=== PATIENT | male | born 1965 | race Caucasian/White ===

== ENCOUNTER 2018-09-12 00:56 | Inpatient (IN) | payer MEDICAID ==
[~2018-09-12] VITALS: Ht 185.4 cm; Wt 115.0 kg
[2018-09-12] MEDS ORDERED: ONDANSETRON 2MG/ML, 2ML IVPush ONE (01:30)
[2018-09-12] MEDS ORDERED: AMPICILLIN/SULBACTAM 3 GM in SODIUM CHLORIDE 0.9% 100 ML IVPB ONE (01:30)
[2018-09-12] MEDS ORDERED: VANCOMYCIN 2,000 MG in SODIUM CHLORIDE 0.9% 500 ML IV ONE (01:30)
[2018-09-12] MEDS ORDERED: MORPHINE SULFATE 4 MG/ML, 1ML IV PRN (01:30)
[2018-09-12] MEDS ORDERED: SODIUM CHLORIDE 0.9% 1,000ML IVBOLUS ONE (01:30)
[2018-09-12] MEDS ORDERED: SODIUM CHLORIDE FLUSH 10ML SYR IVF ONE (01:30)
[2018-09-12] MEDS ORDERED: VANCOMYCIN PER PHARMACY IV ONE (01:30)
[2018-09-12] MEDS ORDERED: ONDANSETRON 2MG/ML, 2ML ONE (01:44)
[2018-09-12] MEDS ORDERED: MORPHINE SULFATE 4 MG/ML, 1ML ONE (01:45)
[2018-09-12 01:47] LABS: HCT (SEDRATE) 41.7 % (39.2-51.8)
[2018-09-12 01:48] LABS: MEAN CORPUSCULAR HEMOGLOBIN 29.1 pg (27.5-34.5); MEAN CORPUSCULAR HGB CONC 34.5 g/dL (33.2-36.2); MEAN CORPUSCULAR VOLUME 84.2 fL (81-97); MEAN PLATELET VOLUME 8.9 fL (7.4-10.4); PLATELET COUNT 304 x10^3/uL (130-400); RED BLOOD COUNT 5.04 x10^6/uL (4.38-5.82); RED CELL DISTRIBUTION WIDTH 13.5 % (9.4-14.8)
[2018-09-12 02:01] LABS: ALBUMIN 3.6 g/dL (3.4-5.0); ANION GAP 10 mmol/L (5-15); CALCIUM 8.9 mg/dL (8.5-10.1); CHLORIDE 103 mmol/L (98-107); CREATININE 1.23 mg/dL (0.7-1.3)
[2018-09-12 02:22] LABS: BASOPHILS # (AUTO) 0.11 x10^3/uL (0-0.1); BASOPHILS % (AUTO) 0 % (0-1); EOSINOPHILS # (AUTO) 0.02 x10^3/uL (0-0.4); EOSINOPHILS % (AUTO) 0 % (1-7); LYMPHOCYTES % (AUTO) 6 % (22-44); MD SCAN; MONOCYTES # (AUTO) 1.99 x10^3/uL (0.2-0.8); MONOCYTES % (AUTO) 8 % (2-9); NEUTROPHILS # (AUTO) 23.05 x10^3/uL (1.8-6.8); NEUTROPHILS % (AUTO) 86 % (42-75)
[2018-09-12] MEDS ORDERED: OMNIPAQUE 350 MG/ML, 100ML BOTTLE ONE (02:37)
[2018-09-12] MEDS ORDERED: AMLO10TA6 PO (03:22)
[2018-09-12 04:16] VITALS: BP 135/87
[2018-09-12] MEDS ORDERED: KETOROLAC 30 MG/1 ML IV PRN (04:30)
[2018-09-12] MEDS ORDERED: ONDANSETRON 2MG/ML, 2ML IVPush PRN (04:30)
[2018-09-12] MEDS ORDERED: POLYETHYLENE GLYCOL 17 GM PACKET PO PRN (04:30)
[2018-09-12] MEDS ORDERED: PROMETHAZINE 25 MG/ML, 1ML IM PRN (04:30)
[2018-09-12] MEDS ORDERED: CYCLOBENZAPRINE 10 MG TABLET PO PRN (04:30)
[2018-09-12] MEDS ORDERED: ONDANSETRON ODT 4 MG PO PRN (04:30)
[2018-09-12] MEDS ORDERED: LABETALOL 5MG/ML, 20ML IVPush PRN (04:30)
[2018-09-12] MEDS ORDERED: BISACODYL 10 MG SUPP PR PRN (04:30)
[2018-09-12] MEDS ORDERED: ACETAMINOPHEN 325 MG TABLET PO PRN (04:30)
[2018-09-12] MEDS ORDERED: morphine SULFATE 10 MG/ML, 1ML IVPush PRN (04:30)
[2018-09-12] MEDS ORDERED: hydrALAzine 20 MG/ML, 1ML IVPush PRN (04:30)
[2018-09-12] MEDS ORDERED: VANCOMYCIN PER PHARMACY MC PRN (05:00)
[2018-09-12] MEDS: SODIUM CHLORIDE 0.9% 1,000 ML IV SCH ×2 (05:38→16:20)
[2018-09-12] MEDS: PIPERACILLIN/TAZO/PMX 3.375GM 50 ML IV SCH ×3 (05:38→16:21)
[2018-09-12] MEDS: LACTOBACILLUS CHEW TABLET PO SCH ×4 (06:00→21:18)
[2018-09-12 06:13] LABS: FREE T4 (FREE THYROXINE) 1.52 ng/dL (0.76-1.46); THYROID STIMULATING HORMONE 0.76 mIU/L (0.358-3.740)
[2018-09-12] MEDS ORDERED: PHARMACOKINETIC CONSULTATION MC ONE (06:30)
[2018-09-12] MEDS ORDERED: PHARMACOKINETIC MONITORING MC PRN (06:30)
[2018-09-12 07:42] VITALS: BP 129/81
[2018-09-12] MEDS: SENNA/DOCUSATE TABLET PO SCH (08:08)
[2018-09-12] MEDS: HEPARIN 5,000 UNITS/ML, 1ML SQ SCH ×2 (08:08→16:21)
[2018-09-12 12:34] LABS: HEMOGLOBIN A1C 6.4 % (4.2-6.3)
[2018-09-12 13:17] VITALS: BP 122/69
[2018-09-12] MEDS: OXYcodone/APAP 5/325MG TABLET PO PRN ×2 (16:23→21:18)
[2018-09-12 20:06] VITALS: BP 110/69
[2018-09-12] MEDS: VANCOMYCIN 2,000 MG in SODIUM CHLORIDE 0.9% 500 ML IV SCH (21:17)
[2018-09-13] MEDS: PIPERACILLIN/TAZO/PMX 3.375GM 50 ML IV SCH ×5 (00:47→23:25)
[2018-09-13] MEDS: HEPARIN 5,000 UNITS/ML, 1ML SQ SCH ×3 (00:47→17:00)
[2018-09-13 01:46] VITALS: BP 146/90
[2018-09-13 05:22] LABS: ALBUMIN 2.4 g/dL (3.4-5.0); CALCIUM 7.9 mg/dL (8.5-10.1); CHLORIDE 105 mmol/L (98-107)
[2018-09-13 05:25] LABS: MEAN CORPUSCULAR HEMOGLOBIN 29.4 pg (27.5-34.5); MEAN CORPUSCULAR HGB CONC 34.7 g/dL (33.2-36.2); MEAN CORPUSCULAR VOLUME 84.7 fL (81-97); MEAN PLATELET VOLUME 8.7 fL (7.4-10.4); PLATELET COUNT 205 x10^3/uL (130-400); RED BLOOD COUNT 4.44 x10^6/uL (4.38-5.82); RED CELL DISTRIBUTION WIDTH 13.7 % (9.4-14.8)
[2018-09-13 05:27] LABS: ALANINE AMINOTRANSFERASE 19 U/L (12-78); ALKALINE PHOSPHATASE 98 U/L (45-117); ANION GAP 8 mmol/L (5-15); CHOL/HDL RATIO 4.8; CHOLESTEROL, TOTAL 91 mg/dL (140-239); CREATININE 0.89 mg/dL (0.7-1.3); HDL CHOL % 21 % (26-37); HDL CHOLESTEROL (DIRECT) 19 mg/dL (40-60); LDL CHOLESTEROL,CALCULATED 52 mg/dL (54-169); LDL/HDL RATIO 2.7 (0.5-3.0); TOTAL PROTEIN 6.3 g/dL (6.4-8.2); TRIGLYCERIDES 101 mg/dL (50-200); VLDL CHOLESTEROL 20 mg/dL (0-25)
[2018-09-13] MEDS: SODIUM CHLORIDE 0.9% 1,000 ML IV SCH (05:46)
[2018-09-13] MEDS: LACTOBACILLUS CHEW TABLET PO SCH ×4 (05:46→22:17)
[2018-09-13] MEDS: OXYcodone/APAP 5/325MG TABLET PO PRN ×3 (05:46→22:16)
[2018-09-13 05:48] LABS: BASOPHILS # (AUTO) 0.06 x10^3/uL (0-0.1); BASOPHILS % (AUTO) 0 % (0-1); EOSINOPHILS # (AUTO) 0.16 x10^3/uL (0-0.4); EOSINOPHILS % (AUTO) 1 % (1-7); LYMPHOCYTES # (AUTO) 1.57 x10^3/uL (1-3.4); LYMPHOCYTES % (AUTO) 6 % (22-44); MD SCAN; MONOCYTES # (AUTO) 1.69 x10^3/uL (0.2-0.8); MONOCYTES % (AUTO) 6 % (2-9); NEUTROPHILS # (AUTO) 23.48 x10^3/uL (1.8-6.8); NEUTROPHILS % (AUTO) 87 % (42-75)
[2018-09-13 07:03] VITALS: BP 122/69
[2018-09-13] MEDS: SENNA/DOCUSATE TABLET PO SCH (09:22)
[2018-09-13 14:02] VITALS: BP 126/72
[2018-09-13] MEDS: KETOROLAC 30 MG/1 ML IV SCH ×2 (15:03→22:17)
[2018-09-13] MEDS: VANCOMYCIN 2,000 MG in SODIUM CHLORIDE 0.9% 500 ML IV SCH (15:03)
[2018-09-13 19:01] VITALS: BP 138/88
[2018-09-14 03:14] VITALS: BP 134/83
[2018-09-14] MEDS: HEPARIN 5,000 UNITS/ML, 1ML SQ SCH ×2 (03:15→11:40)
[2018-09-14] MEDS: KETOROLAC 30 MG/1 ML IV SCH ×2 (03:16→09:41)
[2018-09-14] MEDS: LACTOBACILLUS CHEW TABLET PO SCH ×2 (05:46→11:40)
[2018-09-14] MEDS: PIPERACILLIN/TAZO/PMX 3.375GM 50 ML IV SCH ×2 (05:46→11:40)
[2018-09-14 07:37] VITALS: BP 137/91
[2018-09-14] MEDS: VANCOMYCIN 2,000 MG in SODIUM CHLORIDE 0.9% 500 ML IV SCH (09:40)
[2018-09-14] MEDS: OXYcodone/APAP 5/325MG TABLET PO PRN (09:41)
[2018-09-14] MEDS: SENNA/DOCUSATE TABLET PO SCH (09:41)
[2018-09-14 11:51] LABS: MEAN CORPUSCULAR HEMOGLOBIN 29.1 pg (27.5-34.5); MEAN CORPUSCULAR HGB CONC 34.4 g/dL (33.2-36.2); MEAN CORPUSCULAR VOLUME 84.6 fL (81-97); MEAN PLATELET VOLUME 9.2 fL (7.4-10.4); PLATELET COUNT 231 x10^3/uL (130-400); RED BLOOD COUNT 4.34 x10^6/uL (4.38-5.82); RED CELL DISTRIBUTION WIDTH 13.7 % (9.4-14.8)
[2018-09-14 12:07] LABS: BASOPHILS # (AUTO) 0.01 x10^3/uL (0-0.1); BASOPHILS % (AUTO) 0 % (0-1); EOSINOPHILS # (AUTO) 0.06 x10^3/uL (0-0.4); EOSINOPHILS % (AUTO) 0 % (1-7); LYMPHOCYTES % (AUTO) 4 % (22-44); MD SCAN; MONOCYTES # (AUTO) 1.28 x10^3/uL (0.2-0.8); MONOCYTES % (AUTO) 5 % (2-9); NEUTROPHILS # (AUTO) 25.59 x10^3/uL (1.8-6.8); NEUTROPHILS % (AUTO) 91 % (42-75)
[2018-09-14 12:13] VITALS: BP 127/73
[2018-09-14] MEDS ORDERED: IBUP-1223 PO (12:21)
[2018-09-14] MEDS ORDERED: OXYC-293 PO (12:21)
[2018-09-14] MEDS ORDERED: AMOX1TAB64 PO (12:21)
[2018-09-14] MEDS ORDERED: DOCU-131 PO (12:21)
[2018-09-14] MEDS ORDERED: LINE600T33 PO (12:21)
== END 2018-09-14 13:57 | disposition home or self-care (01) | DRG 872 ==
LOC: ED 03:09 → EDIP 03:19 → 4NOR 04:05 → DCLOUNGE 09-14 13:43
PROVIDERS: ADMIT Internal Medicine; ATTEND Internal Medicine
DX: A41.9 Sepsis, unspecified organism (principal); L03.114 Cellulitis of left upper limb; I10 Essential (primary) hypertension; Z88.5 Allergy status to narcotic agent; Z87.81 Personal history of (healed) traumatic fracture; Z79.899 Other long term (current) drug therapy
CPT/HCPCS: 36415; 80048; 80053; 80061; 82040; 83036; 83605; 83735; 84145; 84439; 84443; 85025; 85651; 86140; 87040; 96365; 96375; G0378; J0295; J1644; J1885; J2405; J2543; J3370; Q9967; J2270; J7030; J7040

== ENCOUNTER 2019-09-10 11:20 | Emergency (ER) | payer MEDICAID ==
[~2019-09-10] VITALS: Ht 185.4 cm; Wt 102.6 kg
[~2019-09-10 11:20] MED LIST: AMLO10TA8 PO; AMOX1TAB64 PO; DOCU-131 PO; IBUP-1223 PO; LINE600T15 PO; OXYC-293 PO
[2019-09-10] MEDS ORDERED: HYDROcodone/APAP 5/325 TABLET PO PRN (12:30)
[2019-09-10] MEDS ORDERED: HYDROcodone/APAP 5/325 TABLET ONE (12:52)
[2019-09-10] MEDS ORDERED: AMLO10TA8 PO (13:00)
[2019-09-10 13:27] VITALS: BP 155/95
--- NOTE | 2019-09-10 13:28 | NUR ---
Patient/Caregiver given discharge instructions and they have confirmed that they understand the instructions. Patient ambulatory with steady gait.
--- NOTE | 2019-09-10 13:33 | NUR ---
PT RATES PAIN 6/10
== END 2019-09-10 13:34 | disposition home or self-care (01) ==
LOC: ED 13:20
DX: S43.52XA Sprain of left acromioclavicular joint, initial encounter (principal); S20.212A Contusion of left front wall of thorax, initial encounter; I10 Essential (primary) hypertension; M19.112 Post-traumatic osteoarthritis, left shoulder; W18.39XA Other fall on same level, initial encounter; Y93.89 Activity, other specified; Y92.89 Other specified places as the place of occurrence of the external cause; Y99.8 Other external cause status
CPT/HCPCS: 71046; 99283